=== PATIENT | female | born 1955 | race Caucasian/White ===

== ENCOUNTER → 2022-10-11 | Outpatient (CLI) | payer MEDICARE, OTHER, SELFPAY ==
--- NOTE | 2022-10-11 14:04 | CT_ITS ---
STUDY: CT ABDOMEN AND PELVIS WITHOUT CONTRAST REASON FOR EXAM: Female, 66 years old. RT RENAL STONE, HYDRONEPHROSIS, LEFT FLANK PAIN RADIATION DOSAGE (If Supplied By Facility): CTDIvol = ( 6.95 ) mGy, DLP = ( 324.73 ) mGycm TECHNIQUE: Transaxial images were obtained from the dome of the diaphragm to the symphysis pubis without oral contrast, and without intravenous contrast. Sagittal and coronal images were reconstructed. Individualized dose optimization techniques were used for this CT. COMPARISON: None. FINDINGS: The visualized lung bases are unremarkable. The visualized portions of the heart are within normal limits. Normal liver. The gallbladder is contracted. Normal spleen. Normal pancreas. Normal bilateral adrenal glands. Normal right kidney. 5 mm nonobstructing stone in the midsection of the left kidney. Mild hydronephrosis left kidney without dilatation the ureter suggestive of ureteropelvic junction stenosis Normal visualized stomach. Normal small intestine. Normal colon. There is non-visualization of the appendix. Normal abdominal aorta. Normal inferior vena cava. Normal retroperitoneum. Normal urinary bladder. Normal abdominal wall. Normal osseous structures. 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 Electronically Signed: Lucian Chacon MD at 21:43 EDT ,
== END | disposition home or self-care (01) ==
PROVIDERS: PCP Family Medicine; Referring Provider Urology; Visit Provider Urology
DX: N13.2 Hydronephrosis with renal and ureteral calculous obstruction (principal); R10.9 Unspecified abdominal pain
CPT/HCPCS: 74176

== ENCOUNTER → 2022-10-23 | Outpatient (CLI) | payer MEDICARE, OTHER, SELFPAY ==
--- NOTE | 2022-10-23 08:54 | RAD_ITS ---
STUDY: X-RAY - ABDOMEN/PELVIS REASON FOR EXAM: Female, 66 years old. KUB- STONES TECHNIQUE: Single AP view of the abdomen / pelvis. COMPARISON: None. FINDINGS: There is an unremarkable bowel gas pattern. 4 mm calcific opacity projecting over left kidney consistent with a left renal stone. No definite ureteral stone. There are calcified phleboliths in the pelvis. Normal visualized osseous structures. RAD/Abdomen Single View IMPRESSION: Suspect 4 mm left renal stone. No definite ureteral stone. Electronically Signed: Lucian Chacon MD at 17:09 EDT ,
== END | disposition home or self-care (01) ==
LOC: MTRAD 08:53
PROVIDERS: PCP Family Medicine; Referring Provider Urology; Visit Provider Urology
DX: N20.0 Calculus of kidney (principal)
CPT/HCPCS: 74018

== ENCOUNTER 2022-11-07 10:35 | Day surgery (SDC) | payer MEDICARE, OTHER, SELFPAY ==
[2022-11-07] MEDS: Lactated Ringers 1,000 ML 15 ML IV (11:05)
[2022-11-07 11:07] VITALS: BP 140/83; PULSE 90; RESP 18; TEMP 36.3; O2SAT 100; BMI 24.6
[2022-11-07] MEDS: Cefazolin 2 GM in 0.9% Normal Saline 100 ML IV (12:20)
[2022-11-07 13:30] VITALS: BP 129/83; BP 140/83; PULSE 69; RESP 18; TEMP 36; O2SAT 97
--- NOTE | 2022-11-07 13:33 | DCINST_ITS ---
Discharge Instructions Diet Discharge Diet: No restrictions Activity Discharge Activity: Return to Normal Activity Dressing / Incision Call your doctor if you observe: Fever of 101 or Higher, Inability to urinate and Inability to have a bowel movement Follow Up Care Please Follow Up With: Chiara Mendoza MD When: The office will call to make follow-up arrangements Test Results: Test results from this visit will be discussed in further detail at your follow- up appointment, if applicable. Discharge Plan Admission Attending Provider: Chiara Mendoza Primary Care Provider: Matthew Bean Discharge Orders/Prescriptions Prescriptions: New oxycodone-acetaminophen [Percocet] 5-325 mg tablet 1 tab PO Q8H PRN (Reason: pain) 3 Days Qty: 10 0RF cephalexin [cephalexin] 500 mg capsule 500 mg PO Q12 3 Days Qty: 6 0RF Continued Premarin 0.625 mg/gram cream 0.3125 mg vaginal GRIFFIN Rx Instructions: off 1 week; repeat cycle potassium 99 mg tablet 99 mg PO QHS magnesium 250 mg tablet 250 mg PO QHS biotin 10,000 mcg capsule 10,000 mcg PO QHS Referrals / Follow Up: Matthew Bean MD [Primary Care Provider] - Disposition Disposition (needs filled in before D/C Order can be placed): Home, Self Care
--- NOTE | 2022-11-07 13:35 | PCM.OPRPT ---
Report of Operation Date of Procedure: 11/07/22 Pre-Operative Diagnosis: Left renal calculus Post-Operative Diagnosis: Same Surgery/Procedure Performed:: Left renal extracorporal shockwave lithotripsy Surgeon: Chiara Mendoza Type of Anesthesia: General Specimen's removed: None Description of Procedure: The patient is a 66-year-old female with a left renal stone who presents for definitive surgical intervention. Informed consent was obtained. The patient was taken to the operating room and placed on the operating room table. Anesthesia monitored the head, neck, airway, IV access and vital signs throughout the case. Once anesthesia was appropriately administered, the patient was positioned on the lithotripsy table. A total of 3000 shocks were applied to the stone which appeared to be well fragmented at the conclusion of the case. The patient was then awakened and taken to the recovery room in good condition. There were no complications during this procedure. Complications None Admit VTE Documentation VTE Present on Admission: Yes VTE Mechan Device Prophylaxis: SCD's VTE Pharm Prophylaxis ordered?: No Reason prophylaxis not ordered:: Treatment Not Indicated
[2022-11-07 13:45] VITALS: BP 131/79; BP 140/83; PULSE 62; RESP 18; O2SAT 97
[2022-11-07 14:00] VITALS: BP 121/81; BP 140/83; PULSE 71; RESP 18; O2SAT 97
[2022-11-07 14:15] VITALS: BP 140/83; BP 142/84; PULSE 62; RESP 16; TEMP 36.7; O2SAT 100
[2022-11-07 14:53] VITALS: BP 140/83
== END 2022-11-07 15:12 | disposition home or self-care (01) ==
LOC: SDC 10:37 → AC 10:39
PROVIDERS: PCP Family Medicine; Referring Provider Urology; Visit Provider Urology
PROC: (CPT 50590; principal; 2022-11-07 12:10)
DX: N20.0 Calculus of kidney (principal); Z87.442 Personal history of urinary calculi; Z79.890 Hormone replacement therapy; Z87.448 Personal history of other diseases of urinary system
CPT/HCPCS: 50590; 00873; J7120; J2405

== ENCOUNTER → 2022-11-26 | Outpatient (CLI) | payer MEDICARE, OTHER, SELFPAY ==
--- NOTE | 2022-11-26 09:10 | RAD_ITS ---
STUDY: X-RAY - ABDOMEN/PELVIS REASON FOR EXAM: Female, 67 years old. Renal calculi. TECHNIQUE: Single AP view of the abdomen / pelvis on 2 images. COMPARISON: October 1922. FINDINGS: Normal visualized lung bases. Feces and bowel gas obscure much of the renal shadows. A 4 mm in diameter calcification seen on the prior study projected over the left kidney is not seen on today''s study. The visualized liver, spleen and kidneys are grossly normal in size and morphology. Multiple phleboliths are stable. Normal visualized osseous structures. RAD/Abdomen Single View IMPRESSION: No abnormal calcification identified. Electronically Signed: Porfirio Douglass MD at 15:57 EDT ,
== END | disposition home or self-care (01) ==
LOC: MTRAD 08:57
PROVIDERS: PCP Family Medicine; Referring Provider Urology; Visit Provider Urology
DX: N20.0 Calculus of kidney (principal)
CPT/HCPCS: 74018

== ENCOUNTER → 2023-11-26 | Outpatient (CLI) | payer MEDICARE, OTHER, SELFPAY ==
--- NOTE | 2023-11-26 09:56 | RAD_ITS ---
STUDY: X-RAY - ABDOMEN/PELVIS REASON FOR EXAM: Female, 68 years old. KUB TECHNIQUE: Single AP view of the abdomen / pelvis. COMPARISON: 10/23/2022 FINDINGS: Normal visualized lung bases. There is an unremarkable bowel gas pattern. The visualized liver, spleen and kidneys are grossly normal in size and morphology. Normal soft tissue structures. Normal visualized osseous structures. RAD/Abdomen Single View IMPRESSION: Normal x-ray examination of the abdomen and pelvis. Electronically Signed: Lucian Chacon MD at 12:46 EDT ,
== END | disposition home or self-care (01) ==
LOC: MTRAD 09:54
PROVIDERS: PCP Family Medicine; Referring Provider Urology; Visit Provider Urology
DX: N20.0 Calculus of kidney (principal)
CPT/HCPCS: 74018